=== PATIENT | female | born 1990 | race Caucasian/White ===

== ENCOUNTER 2023-10-13 20:01 | Emergency (ER) | payer BC, SELFPAY ==
[2023-10-13 20:05] VITALS: BP 174/118
--- NOTE | 2023-10-13 20:28 | ED.GENMED ---
History of Present Illness
General
Chief Complaint: Abdominal Pain
Source: patient
Exam Limitations: none
Time Seen by Provider: 10/13/23 20:16
Travel History
Have you had any contact with someone who has COVID-19?: No
Do you have any symptoms of coronavirus? Fever > 100 degrees, chills, cough, shortness of breath, sore throat, loss of taste or smell, muscle aches, or headache?: No
History of Present Illness
History of Present Illness:
This is a 33 year old female that comes in with c/o right sided abd pain. States that on Tuesday she started with decreased appetite. States that she felt nauseated with bloating. States that on Tuesday she started with diarrhea and the nausea and
then that evening she started with pain behind the naval. States that this pain moved to the right side. States that the pain is now on the right sided and comes in waves. States tat she didn't sleep last night due to the pain and that when she
stands, lays she has pain. States that she felt SOB with the pain. States that she is also a little lightheaded. Denies any fever, chills, chest pain, vomiting, headache, urinary burning.
Past History
Past History
ED Past Medical History: None; Negative Asthma, HTN, Hypercholesterolemia or NIDDM
ED Past Surgical History: Cholecystectomy and
Social History
Tobacco: Non-smoker
Alcohol: Occasional
Personal:
Living: with family
Review of Systems
Review of Systems
All Other Systems: ROS reviewed and negative except as documented in HPI and ROS
Constitutional: Reports no symptoms; Denies fever or chills
EENT: Reports no symptoms
Respiratory: Reports no symptoms; Denies cough or trouble breathing
Cardiac: Reports no symptoms; Denies chest pain
ABD/GI: Reports abdominal pain, nausea and diarrhea; Denies vomiting
: Reports no symptoms; Denies dysuria, frequency or urgency
Musculoskeletal: Reports no symptoms
Skin: Reports no symptoms
Neurological: Reports other (lightheaded); Denies dizzy or headache
Psychiatric: Reports no symptoms
Phy Exam
General Physical Exam
General Presentation: well appearing and no apparent distress
General age: appears stated age
General Skin: warm and dry
General Habitus: obese
General Mental: alert
General Hydration: appears well hydrated
ENT Exam
ENT Exam: TM's normal, pharynx normal and neck supple
Eye Exam
Eye Exam: EOMI
Cardiovascular Exam
Cardiovascular Exam: regular rate/rhythm, no edema, no murmur and normal peripheral pulses
Pulmonary Exam
Pulmonary Exam: lungs clear, no respiratory distress, no rales, chest non tender, no crackles, no rhonchi, no wheezing and no cough
Gastrointestinal Exam
Gastrointestinal Exam: normal bowel sounds, soft, no organomegaly, no pulsatile mass, non distended and tender (right sided abd tenderness with palpation)
Musculoskeletal Exam
Musculoskeletal Exam: full ROM and no edema
Skin Exam
Skin Exam: normal color, warm/dry, no rash and no petechia
Psychiatric Exam
Psychiatric Exam: normal mood/affect
Course
Orders/Labs/Results
Orders:
Orders
10/13/23 20:08
IV Insert/Care/Rem.- Treatment PRN
Test Result ONCE
10/13/23 20:27
0.9% Sodium Chloride 1000 ml [Nss] 1,000 ml IV BOLUS
Ondansetron Injectable [Zofran] 4 mg IV NOW STA
10/13/23 20:39
Iohexol [Omnipaque] See Protocol PO NOW STA
10/13/23 20:40
CT Abd/pel (oral only)-DH Only Urgent
Comment:
Reason For Exam: right sided abd pain
10/13/23 20:41
Complete Blood Count/With Diff Urgent
Comprehensive Metabolic Panel Urgent
HCG, Serum Qualitative Screen Urgent
Lipase Urgent
10/13/23 21:57
Urinalysis Reflex To Culture Urgent
Date Specimen was Collected: 10/13/23
Time Specimen was Collected: 20:43
Urine Microscopic Reflex Cult Urgent
Abnormal Lab Results
10/13/23 10/13/23
20:41 21:57
WBC 15.0 H 10^3/uL
(4.8-10.8)
Hgb 9.3 L g/dL
(12.0-16.0)
Hct 31.4 L %
(37.0-47.0)
MCV 66.4 L fL
(81.0-99.0)
MCH 19.7 L pg
(27.0-31.0)
MCHC 29.6 L g/dL
(33.0-37.0)
RDW 18.7 H %
(11.5-14.5)
Plt Count 494 H 10^3/uL
(130-400)
Abs Immat Gran (auto) 0.1 H 10^3/uL
(0-0.05)
Absolute Neuts (auto) 8.5 H 10^3/uL
(1.4-6.5)
Absolute Lymphs (auto) 5.0 H 10^3/uL
(1.2-3.4)
Absolute Monos (auto) 0.8 H 10^3/uL
(0.1-0.6)
Sodium 133 L mmol/L
(135-145)
BUN 5 L mg/dl
(7-17)
Creatinine 0.5 L mg/dL
(0.6-1.0)
Glucose 102 H mg/dl
(70-99)
AST 39 H U/L
(14-36)
Leukocyte Esterase Rfl Trace A
(Negative)
Urine Bacteria (Reflex) Few A
(Negative)
10/13/23 20:41
10/13/23 20:41
Leukocytosis, H/H low, Plt slightly elevated. Anemia, glucose nonfasting, AST slightly elevated. Lipase normal at 73, HCG negative.
Vital Signs
Initial and Last Documented VS:
Initial Vital Signs
Temp Pulse Resp BP Pulse Ox
98.3 F 109 17 174/118 99
10/13/23 20:05 10/13/23 20:05 10/13/23 20:05 10/13/23 20:05 10/13/23 20:05
Last Documented Vital Signs
Temp Pulse Resp BP Pulse Ox
98.3 F 85 20 125/79 100
10/13/23 20:05 10/13/23 21:03 10/13/23 21:03 10/13/23 23:16 10/13/23 23:45
MDM/Problems Addressed
Differential Diagnosis Includes:
Appendicitis, Ovarian cyst
MDM/Problems Addressed:
This is a 33 year old female that comes in with c/o right sided abd pain. States that she lost her appetite on Tuesday and then she started with nausea, abd bloating and diarrhea. States that the pain radiated to the right side.
Will check labs, CT scan and urine. Patient refused pain medication at this time
Back into see patient. Explained that her Blood work shows a WBC elevation. Her urine is negative for infection and her CT is negative for any acute process. Questioned patient if she was having any back discomfort. Patient states yes and explained
that the nerves form the back wrap around to the abd and this may be causing her abd pain. Patient states that her pain is not worse. Will have patient use Tylenol or Ibuprofen for pain. Follow up with the PCP. Return with increased or changing
pain.
Chronic conditions affecting care:
NA
Acute Exacerbation and/or Progression of Chronic Illness:
NA
*Radiology
Radiology exam reviewed: radiology read reviewed (CT- Night hawk- No bowel or renal obstruction. No free air or free fluid. Normal appendix. Cholecystectomy. Mild hepatosplenomegaly. Uterus and adnexa are unremarkable. Motion artifact on exam limits
study. )
*Pulse Oximetry
Patient hypoxic: no
*EKG
Interpreted by ED Provider?: NA
Rate: EKG- N/A
*Engineering And Operations Director Interpretation
Rate: Engineering And Operations Director- N/A
*Critical Care Note
Total Time (30-74mins, 75-104mins- exclusive of procedures): Not Applicable
ED Attending Note
-
Portions of this chart may have been created with voice recognition software.� Occasional wrong word or��sound alike� substitutions may have occurred due to the inherent limitations of voice recognition software.
Discharge Plan
Departure
Patient Disposition: Home (Routine Discharge)
Date of Disposition: 10/14/23
Time of Disposition: 00:10
Patient with high blood pressure during this ER visit?: Yes
Condition: Good
Covid-19: Not Applicable
Discharge Problem:
Abdominal pain
Instructions: Abdominal Pain, BLOOD PRESSURE
Prescriptions:
No Action
ondansetron 4 mg tablet,disintegrating
4 mg PO TIDPRN PRN (Reason: nausea/vomiting) Qty: 20 0RF
Referrals:
Noy Novak MD [Family Provider] - Follow up in 2-3 days
Activity Restrictions/Additional Instructions:
As discussed, your blood work shows that your White blood cell count is elevated. You are also a little anemic. Please follow up with the family doctor for recheck. Your CT scan is negative for any acute process. Please use Tylenol 1000mg every 6
hours for pain or Ibuprofen 600mg every 6 hours with food for pain. IF YOU HAVE INCREASED OR CHANGING PAIN, OR YOU HAVE ANY OTHER CONCERNS PLEASE RETURN TO THE EMERGENCY ROOM.
Interventions
Interventions:
*Risk Screen - Suicide Last Done: 10/13/23 20:05
*General Assessment Last Done: 10/13/23 20:05
*Neglect/Abuse Screening Last Done: 10/13/23 20:05
ED- Fall Risk Assessment Last Done: 10/13/23 20:08
*ED COVID-19 Vaccine History Last Done: 10/13/23 20:05
BG-Mxalnx-Bhdqifwnkt Assessment Last Done: 10/13/23 20:08
Discharge Date and Time
Print Language: TAJIK
[2023-10-13 20:47] LABS: % Basophils 0.5 % (0-2); % Eosinophils 3.5 % (0-6); % Immature Granulocytes 0.5 % (0-0.5); % Lymphocytes 33.5 % (20.5-51.1); % Monocytes 5.5 % (1.7-9.3); % Neutrophils 56.5 % (42.2-75.2); Absolute Basophils 0.1 10^3/uL (0-0.2); Absolute Eosinophils 0.5 10^3/uL (0-0.7); Absolute Immature Granulocytes 0.1 10^3/uL (0-0.05); Absolute Monocytes 0.8 10^3/uL (0.1-0.6); Absolute Neutrophils 8.5 10^3/uL (1.4-6.5); Hematocrit 31.4 % (37.0-47.0); Hemoglobin 9.3 g/dL (12.0-16.0); Mean Corp Hgb Conc. 29.6 g/dL (33.0-37.0); Mean Corpuscular Hgb 19.7 pg (27.0-31.0); Mean Corpuscular Volume 66.4 fL (81.0-99.0); Mean Platelet Volume 8.5 fL (7.4-10.4); Nucleated Red Blood Cells % 0 %; Platelet Count 494 10^3/uL (130-400); Red Blood Cell Count 4.73 10^6/uL (4.20-5.40); Red Cell Dist. Width 18.7 % (11.5-14.5)
[2023-10-13] MEDS: NSS 1000 IV (20:55)
[2023-10-13] MEDS: ZOFRAN 4 MG IV (20:55)
[2023-10-13] MEDS: OMNIPAQUE 50 ML PO (20:55)
[2023-10-13 20:57] VITALS: BMI 41.5
[2023-10-13 21:03] VITALS: BP 130/84
[2023-10-13 21:05] LABS: HCG, Serum Qualitative Screen Negative
[2023-10-13 21:10] LABS: ALT (SGPT) 29 U/L (0-35); AST (SGOT) 39 U/L (14-36); Albumin 4.6 g/dl (3.5-5.0); Alkaline Phosphatase 88 U/L (38-126); Blood Urea Nitrogen 5 mg/dl (7-17); Carbon Dioxide 23 mmol/L (22-30); Chloride 103 mmol/L (98-107); Estimated Creatinine Clearance > 125 ml/min; Glucose 102 mg/dl (70-99); Lipase 73 U/L (23-300); Potassium 3.8 mmol/L (3.5-5.1); Sodium 133 mmol/L (135-145); Total Bilirubin 0.6 mg/dl (0.2-1.3); Total Protein 8.1 g/dl (6.3-8.2); eGFR > 60.00
[2023-10-13 22:06] LABS: Urine Albumin Negative (Neg - Trace); Urine Bilirubin Negative (Negative); Urine Character Clear (Clear); Urine Color Yellow; Urine Glucose Negative (Negative); Urine Ketone Negative (Negative); Urine Leukocyte Trace (Negative); Urine Nitrite Negative (Negative); Urine Occult Blood Negative (Negative); Urine Specific Gravity 1.005 (<1.030); Urine Urobilinogen Negative (Neg - 1+)
[2023-10-13 22:15] LABS: Urine Bacteria Few (Negative); Urine Red Blood Cell 0-2 /HPF (0-2)
[2023-10-13 23:16] VITALS: BP 125/79
[2023-10-14] VITALS: BP 120/77
== END 2023-10-14 00:27 | disposition home or self-care (01) ==
LOC: EMR 20:01
PROVIDERS: Clinical Nurse Specialist Family Health; Emergency Medicine; EMERGENCY PHYSICIAN Emergency Medicine; FAMILY PHYSICIAN Internal Medicine
DX: R10.9 Unspecified abdominal pain (principal)
CPT/HCPCS: 99284; 96374; 96361; 74176; 80053; 81003; 81015; 83690; 84703; 85025